=== PATIENT | female | born 1975 | race Caucasian/White ===

== ENCOUNTER 2016-11-25 13:52 | Emergency (ER) | payer OTHER ==
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
[~2016-11-25 13:52] MED LIST: ALPRAZOLAM PO; DARVOCET-N 1001 TA1 DOB; DARVOCET-N 1001 TAB PO; DIOVAN PO; FLEXERIL PO; FLEXERIL10 MG PO; LORTAB 5/500 TA1 TA1 PO; LORTAB 7.5-5001 TAB PO; MAG-OXIDE400 MG PO; MEDROL DOSEPAK4 MG DOB; NAPROSYN500 MG PO; NO MEDICATIONS; PHENERGAN25 MG PO; PREDNISONE PO; STERAPRED5 MG/DOSE1 PO; ULTRAM PO; VOLTAREN75 MG PO
== END 2016-11-25 14:01 | disposition home or self-care (01) ==
LOC: CFTX 13:52
DX: S06.0X9A Concussion with loss of consciousness of unspecified duration, initial encounter (principal); S00.33XA Contusion of nose, initial encounter; S60.512A Abrasion of left hand, initial encounter; S60.511A Abrasion of right hand, initial encounter; F17.210 Nicotine dependence, cigarettes, uncomplicated; Z88.0 Allergy status to penicillin; Z23 Encounter for immunization; Z88.5 Allergy status to narcotic agent; Y04.2XXA Assault by strike against or bumped into by another person, initial encounter; Y92.009 Unspecified place in unspecified non-institutional (private) residence as the place of occurrence of the external cause
CPT/HCPCS: 70450; 70486; 84703; 90471; 90715; 99284